=== PATIENT | female | born 1960 | race Two or more races ===

== ENCOUNTER 2016-03-27 12:36 | Emergency (ER) | payer SELFPAY ==
[~2016-03-27] VITALS: Ht 162.6 cm; Wt 54.4 kg
[2016-03-27 12:36] VITALS: BP 128/60
[~2016-03-27 12:36] MED LIST: ASPI325T4 PO; IBUP-1027 PO; IBUP-1060 PO; LOVA20TA2 PO; MECL12.52 PO; SULF1TAB24 PO
[2016-03-27] MEDS ORDERED: MECLIZINE HCL 12.5 MG TABLET. PO ONE (13:15)
--- NOTE | 2016-03-27 14:00 | ED.ADGEN ---
Past Medical History Past Medical History: Other Additional Past Medical Histor: VERTIGO Past Surgical History: Other Additional Past Surgical Histo: STOMACH SX for intestinal parasites Alcohol Use: None Drug Use: None Adult General Chief Complaint Chief Complaint: DIZZY/LIGHT HEADED HPI HPI Patient is a 56 year old woman, history of hypertension, vertigo, who presents to the emergency department department with complaint of vertiginous symptoms. Patient was seen at [facility] in February, and had a full evaluation for vertigo, at that time she was discharged with prescription for meclizine. Patient states that she was unable to get to the store to fill her meclizine prescription, and therefore is not taken any medication for her intermittent vertigo since that time. She states that she woke up this morning and her vertigo severe, causing her to fall down onto her knees. She denies any head injuries, any headache, any focal weakness numbness or tingling, aside from the chronic numbness that she experiences in her left hand. No recent injuries, no sick contacts or exposures, no chest pain, shortness breath, no other complaints. Patient called the ambulance to bring her to the ED as she had no other transportation. Her primary care provider is Dr. Roman. Patient's heart rate is noted to be in the 50s, patient states that her heart rate is always in this range. Blood pressure is 120s over 70s. Review of Systems Review of Systems Constitutional: Denies fever or chills. [] Eyes: Denies change in visual acuity. [] HENT: Denies nasal congestion or sore throat. [] Respiratory: Denies cough or shortness of breath. [] Cardiovascular: Denies chest pain or edema. [] GI: Denies abdominal pain, nausea, vomiting, bloody stools or diarrhea. [] : Denies dysuria. [] Musculoskeletal: Denies back pain or joint pain. [] Integument: Denies rash. [] Neurologic: Denies headache, focal weakness or sensory changes. [Vertigo.] Endocrine: Denies polyuria or polydipsia. [] Lymphatic: Denies swollen glands. [] Psychiatric: Denies depression or anxiety. [] Current Medications Current Medications Current Medications Medications (Trade) Dose Ordered Sig/Scooter Start Time Stop Time Status Last Admin Dose Admin Meclizine HCl (Antivert) 25 mg 1X ONCE 03/27/16 13:15 03/27/16 13:16 DC 03/27/16 13:13 25 MG Allergies Allergies Allergies Coded Allergies Type Severity Reaction Last Updated Verified Penicillins Allergy Severe ANAPHYLAXIS 10/04/15 Yes Physical Exam Physical Exam Constitutional: Well developed, well nourished, no acute distress, non-toxic appearance. [] HENT: Normocephalic, atraumatic, bilateral external ears normal, oropharynx moist, no oral exudates, nose normal. [] Eyes: PERRLA, EOMI, conjunctiva normal, no discharge. [] Neck: Normal range of motion, no tenderness, supple, no stridor. [] Cardiovascular:Heart rate regular rhythm, no murmur, S1, S2, no rubs or gallops. No chest wall tenderness or crepitus. [] Lungs & Thorax: Bilateral breath sounds clear to auscultation, no wheezing, rhonchi, rales. No chest tenderness or crepitus. [] Abdomen: Bowel sounds normal, soft, no rebound, rigidity, no guarding, no tenderness, no masses, no pulsatile masses. [] Skin: Warm, dry, no erythema, no rash. [] Back: No tenderness, no CVA tenderness. [] Extremities: No tenderness, no cyanosis, no clubbing, ROM intact, no edema. Negative Homans sign. [] Neurologic: Alert and oriented X 3, normal motor function, normal sensory function, no focal deficits noted. [] No nystagmus. 5-5 strength in all extremity, normal examination. Psychologic: Affect normal, judgement normal, mood normal. [] Current Patient Data Vital Signs Vital Signs Date Time Temp Pulse Resp B/P Pulse Ox O2 Delivery O2 Flow Rate FiO2 03/27/16 12:36 97.9 51 16 128/60 99 Room Air 97.9 EKG EKG ECG: Rhythm strip: Heart rate 54 bpm, sinus bradycardia, no ectopy. As interpreted by me. Radiology/Procedures Radiology/Procedures [] Impressions: Not indicated. Course & Med Decision Making Course & Med Decision Making Pertinent Labs and Imaging studies reviewed. (See chart for details) [] Patient has been seen in the emergency department multiple times for this similar complaints. She denies any new symptoms today, states this is an exacerbation of her typical vertiginous symptoms. She was given a dose of meclizine in the emergency department. Patient is well-appearing, vital signs are baseline for her, normotensive, heart rate in the 50s. Patient received a dose of meclizine 25 mg in the ED. On reevaluation she states that her dizziness is significantly improved, patient performed and ambulatory trial in the emergency department, and was ambulated without difficulty, she states she is now able to move her head up and down without incurring any dizziness or feeling of disequilibrium. Patient states that she does have her other medication, and that she will follow-up with her primary care provider, she was given another prescription for meclizine 25 mg to be used up to 3 times daily as needed. I did discuss concerning symptoms that prompt return with patient importance of taking medications and filling medications as directed. Patient voiced understanding. A cab pass was obtained for patient to arrange for a ride home. Dragon Disclaimer Dragon Disclaimer This electronic medical record was generated, in whole or in part, using a voice recognition dictation system. Departure Impression: Primary Impression: Vertigo Disposition: 01 HOME, SELF-CARE Condition: IMPROVED Scripts Meclizine Hcl 25 Mg Tablet1 Tab PO PRN TID PRN DIZZINESS #30 TAB Prov:STARR MENA DO 03/27/16 STARR MENA DO Mar 27, 2016 14:00
[2016-03-27] MEDS ORDERED: MECL25TA3 PO (15:06)
== END 2016-03-27 15:40 | disposition home or self-care (01) ==
LOC: ER 12:36
DX: R42 Dizziness and giddiness (principal); Z88.0 Allergy status to penicillin
CPT/HCPCS: 99284; J8597